=== PATIENT | male | born 1945 | race Caucasian/White ===

== ENCOUNTER 2020-01-31 06:26 | Observation (INO) | payer MEDICARE, OTHER ==
[~2020-01-31 06:26] MED LIST: Lidocaine 1% 4 ML ONE; Lidocaine 1%/Sod Bicarbonate in NS 8.4% 1 ML Syringe IDERM PRN; Midazolam 1 MG/ML 2 ML SDV ONE; Ondansetron 4 MG/2 ML SDV ONE; Propofol 200 MG/20 ML SDV ONE; Rocuronium 50 MG/5 ML Vial ONE; Sodium Chloride 0.9% 10 ML Syringe FLUSH PRN; fentaNYL 250 MCG/5 ML SDV ONE
[2020-01-31] MEDS: Lactated Ringers 1,000 ML IV SCH ×2 (06:45→10:18)
--- NOTE | 2020-01-31 06:51 | PCM.PREANE ---
Preanesthetic Assessment - Procedure Proposed Procedure: right reverse total shoulder - Anesthesia/Transfusion/Family Hx Anesthesia History: Prior Anesthesia Without Reaction Family History of Anesthesia Reaction: No Transfusion History: No Prior Transfusion(s) - Review of Systems General: No Symptoms Pulmonary: No Symptoms Cardiovascular: No Symptoms Gastrointestinal: No Symptoms Neurological: No Symptoms Other: Reports: None - Physical Assessment NPO Status Date: 01/30/20 NPO Status Time: 19:00 Vital Signs: 67 96% 97.0 145/72 Height: 6 ft Weight: 88.5 kg ASA Class: 2 Mental Status: Alert & Oriented x3 Airway Class: Mallampati = 1 Dentition: Reports: Normal Dentition Thyro-Mental Finger Breadths: 3 Mouth Opening Finger Breadths: 3 ROM/Head Extension: Full Lungs: Clear to Auscultation, Normal Respiratory Effort Cardiovascular: Regular Rate, Regular Rhythm - Lab Values: Laboratory Last Values SARS-CoV-2 (PCR) Not detected (NOT DETECT) 01/27/20 09:00 - Allergies Allergies/Adverse Reactions: Allergies Allergy/AdvReac Type Severity Reaction Status Date / Time No Known Allergies Allergy Verified 01/28/20 14:23 - Blood Blood Available: No - Acknowledgements Anesthesia Type Planned: General Anesthesia Pt an Appropriate Candidate for the Planned Anesthesia: Yes Alternatives and Risks of Anesthesia Discussed w Pt/Guardian: Yes Pt/Guardian Understands and Agrees with Anesthesia Plan: Yes PreAnesthesia Questionnaire Cardiovascular History: Reports: Heart Murmur, High Cholesterol, Hypertension, Other (See Below) Other Cardiovascular History: PAC's, Aortic Stenosis, Chest Pain Respiratory History: Reports: None Gastrointestinal History: Reports: Chronic Diarrhea, Diverticulosis, GERD, Irritable Bowel Syndrome Other Gastrointestinal History: Colon polyps, ventral hernia, chronic diarrhea, hemorrhoids Other Genitourinary History: ED, Hematuria Musculoskeletal History: Reports: Osteoarthritis Other Musculoskeletal History: quad tendond rupture, knee injury, ankle sprain Psychiatric History: Reports: None Endocrine/Metabolic History: Reports: Other (See Below) Other Endocrine/Metabolic History: Vitamin B12 Deficiency Hematologic History: Reports: B12 Deficiency Other Dermatologic History: Skin Lesion - Past Surgical History HEENT Surgical History: Reports: Tonsillectomy, Other (See Below) Other HEENT Surgeries/Procedures: Eye Surgeries, Blepharoplasty Cardiovascular Surgical History: Reports: Valve Replacement, Other (See Below) Other Cardiovascular Surgeries/Procedures: Aortic Valve Replacement GI Surgical History: Reports: Appendectomy, Colon Musculoskeletal Surgical History: Reports: Other (See Below) Other Musculoskeletal Surgeries/Procedures:: Right RCR, multiple knee surgeries - SUBSTANCE USE Smoking Status *Q: Former Smoker Tobacco Use Within Last Twelve Months: No Second Hand Smoke Exposure: No Days Per Week of Alcohol Use: 7 Number of Drinks Per Day: 3 Total Drinks Per Week: 21 Recreational Drug Use History: No - HOME MEDS Home Medications: Home Meds Cholecalciferol (Vitamin D3) [Vitamin D3] 1,000 units PO DAILY 08/01/15 [History] lisinopriL [Prinivil] 40 mg PO DAILY 08/01/15 [History] Loperamide HCl [Imodium A-D] 1 mg PO ASDIRECTED 01/28/20 [History] Vardenafil HCl [Levitra] 10 mg PO DAILY 01/28/20 [History] atorvaSTATin [Lipitor] 10 mg PO DAILY 01/28/20 [History] Aspirin 325 mg PO DAILY #40 tab 01/31/20 [Rx] Cyclobenzaprine [Flexeril] 5 mg PO BID PRN #20 tab 01/31/20 [Rx] oxyCODONE 5 - 10 mg PO Q4H PRN #60 tab 01/31/20 [Rx] - CURRENT (IN HOUSE) MEDS Current Meds: Current Medications Lactated Ringer's (Ringers, Lactated) 1,000 mls @ 125 mls/hr IV ASDIRECTED [place] Stop: 01/31/20 23:00 Lidocaine/Sodium Bicarbonate (Buffered Lidocaine 1% In Ns 8.4%) 0.25 ml IDERM ONETIME PRN PRN Reason: Prior to IV Start Stop: 01/31/20 23:00 Sodium Chloride (Saline Flush) 10 ml FLUSH ASDIRECTED PRN PRN Reason: Keep Vein Open Stop: 01/31/20 23:00 Discontinued Medications Fentanyl (Sublimaze) Confirm Administered Dose 250 mcg .ROUTE .STK-MED ONE Stop: 01/31/20 06:16 Lidocaine HCl (Xylocaine-Mpf 1%) Confirm Administered Dose 4 mls @ as directed .ROUTE .STK-MED ONE Stop: 01/31/20 06:15 Lidocaine HCl (Xylocaine-Mpf 1%) Confirm Administered Dose 4 mls @ as directed .ROUTE .STK-MED ONE Stop: 01/31/20 06:17 Midazolam HCl (Versed 1 Mg/Ml) Confirm Administered Dose 2 mg .ROUTE .STK-MED ONE Stop: 01/31/20 06:16 Ondansetron HCl (Zofran) Confirm Administered Dose 4 mg .ROUTE .STK-MED ONE Stop: 01/31/20 06:15 Propofol (Diprivan 20 Ml) Confirm Administered Dose 200 mg .ROUTE .STK-MED ONE Stop: 01/31/20 06:16 Rocuronium [place] (Zemuron) Confirm Administered Dose 50 mg .ROUTE .STK-MED ONE Stop: 01/31/20 06:15
[2020-01-31] MEDS ORDERED: Ropivacaine 0.5% 5 MG/ML 30 ML SDV ONE (06:58)
[2020-01-31] MEDS ORDERED: EPINEPHrine 1 MG/ML SDV ONE (06:58)
--- NOTE | 2020-01-31 06:58 | PCM.OPNOTE ---
- General Post-Op/Procedure Note Date of Surgery/Procedure: 01/31/20 Operative Procedure(s): right reverse total shoulder arthroplasty Pre Op Diagnosis: right shoulder rotator cuff tear arthropathy Post-Op Diagnosis: Same Anesthesia Technique: General ET Tube, Regional Block Primary Surgeon: Nathan Jerry Anesthesia Provider: Eduardo Gao Kitchen Worker: Hope Mar Kitchen Worker: Madonna Stone EBL in mLs: 550 Complications: None Condition: Good Free Text/Narrative:: 17 stem 36+2 4mm poly
--- NOTE | 2020-01-31 07:33 | PCM.SN.2 ---
- Free Text/Narrative Note: Date: 01/31/20 Time out: 07 Start time: 710 End time:[address] right interscalene block with ultrasound guidance and nerve stimulator for post op pain control per Dr. Jerry and patient. Preop diagnosis right shoulder pain. Procedure is right shoulder right shoulder replacement reverse Informed consent obtained. Monitors and O2 placed at 2 l per n/c. Versed 2 mg and Fentanyl 50 mcg given IV total. Patient awake and talking during procedure. Right neck and clavicle area prepped with chlorprep. Sterile gloves, hat and mask worn. US probe with sterile sleeve placed midclavicular with ID of brachial plexus and subclavian artery. Brachial plexus followed cephalad to level of cricoid. Lidocaine 1% local anesthetic injected prior to block placement. 22 g 2 inch stimplex needle advanced with US guidance to brachial plexus. Positive forearm response at .4mA with nerve stimulator. Ceased with saline injection. Ropivacaine 0.5% with epi 1:200,000 injected in increments of 5 ml with negative aspiration before each injection to a total of 30 ml. Good spread of local anes thetic seen on US. Patient tolerated procedure well. Vitals stable with no complaints. Eduardo Gao CRNA
[2020-01-31] MEDS ORDERED: Dexamethasone 4 MG/ML 5 ML MDV ONE (08:13)
[2020-01-31] MEDS ORDERED: Ondansetron 4 MG/2 ML SDV IVPUSH PRN ×2 (08:26→15:09)
[2020-01-31] MEDS ORDERED: HYDROmorphone 0.5 MG/0.5 ML Syringe IVPUSH PRN (08:26)
[2020-01-31] MEDS ORDERED: fentaNYL 100 MCG/2 ML SDV IVPUSH PRN (08:26)
[2020-01-31] MEDS ORDERED: Lactated Ringers 1,000 ML ONE ×2 (08:30→10:02)
[2020-01-31] MEDS: Vancomycin 1 GM SDV ONE ×2 (09:12→09:24)
--- NOTE | 2020-01-31 09:55 | PCM.POSTAN ---
POST ANESTHESIA ASSESSMENT - MENTAL STATUS Mental Status: Alert, Oriented - VITAL SIGNS Vital Signs: Last Vital Signs Temp 97.0 F 01/31/20 06:30 Pulse 65 01/31/20 08:17 Resp 17 01/31/20 08:17 BP 122/70 01/31/20 07:35 Pulse Ox 94 L 01/31/20 08:17 0947 130/63 97% 57 14 97.5 - RESPIRATORY Respiratory Status: Respiratory Rate WNL, Airway Patent, O2 Saturation Stable, Supplemental Oxygen - CARDIOVASCULAR CV Status: Pulse Rate WNL, Blood Pressure Stable - GASTROINTESTINAL GI Status: No Symptoms - PAIN Pain Score: 0 - POST OP HYDRATION Hydration Status: Adequate & Stable
[2020-01-31] MEDS ORDERED: Ketorolac 15 MG/ML SDV IVPUSH SCH (10:30)
[2020-01-31] MEDS: Cyclobenzaprine 10 MG Tab PO SCH ×2 (11:46→21:37)
[2020-01-31] MEDS: oxyCODONE 5 MG Tab PO PRN ×3 (11:47→22:13)
[2020-01-31] MEDS ORDERED: Naloxone 0.4 MG/ML SDV IVPUSH PRN (15:09)
[2020-01-31] MEDS ORDERED: Bisacodyl 5 MG Tab PO PRN (15:09)
[2020-01-31] MEDS ORDERED: Morphine 2 MG/ML SYRINGE IVPUSH PRN (15:09)
[2020-01-31] MEDS ORDERED: Sennosides 8.6 MG Tab PO PRN (15:09)
[2020-01-31] MEDS ORDERED: Magnesium Hydroxide 400 MG/5 ML Susp 30 ML Cup PO PRN (15:09)
[2020-01-31] MEDS ORDERED: Cyclobenzaprine 10 MG Tab PO PRN (15:16)
[2020-01-31] MEDS: ceFAZolin 2 GM in Premix Bag 1 BAG IV SCH ×2 (16:00→23:48)
[2020-01-31] MEDS ORDERED: Albuterol/Ipratropium 3.0-0.5 MG/3 ML Neb Soln NEB PRN (17:26)
[2020-01-31] MEDS: Docusate Sodium 100 MG Cap PO SCH (21:37)
[2020-01-31] MEDS: Famotidine 10 MG Tab PO SCH (21:42)
[2020-02-01] MEDS: oxyCODONE 5 MG Tab PO PRN ×2 (04:01→09:02)
--- NOTE | 2020-02-01 06:07 | PCM.CONS ---
H&P History of Present Illness - General Date of Service: 01/31/20 Admit Problem/Dx: Admission Diagnosis/Problem Admission Diagnosis/Problem Osteoarthritis of shoulder Source of Information: Patient, Provider History Limitations: Reports: No Limitations - History of Present Illness Initial Comments - Free Text/Narative: 74-year-old male with right reverse total shoulder today was found to be hypoxemic and bradycardic after surgery. Dr. Jerry consult medical service in regards to the above. Patient states he has a history of atrial arrhythmia since 2012 when he had cardiac valve surgery. Patient was first noticed then. He then he had surgery couple years ago on his right knee and there was concern about atrial fibrillation. Patient was seen by cardiology and after EKG and consultation it was determined that he had an atrial arrhythmia and not fibrillation. When I presented to the patient's bedside he had a pulse oximetry on that was reading in the mid 30s for pulse and he was at 92% on 2 L nasal cannula. Taking a radial pulse patient had a heart rate in the 70s. Supplemental O2 was stopped and his oxygen saturations did not change and work consistently in the low 90s. Patient denied any shortness of breath, cough, weakness, chest pain, edema, nausea, vomiting. Patient is a non-smoker. He does drink alcohol daily. Right Shoulder Pain Score (Numeric/FACES): 2 - Related Data Allergies/Adverse Reactions: Allergies Allergy/AdvReac Type Severity Reaction Status Date / Time No Known Allergies Allergy Verified 01/28/20 14:23 Home Medications: Home Meds Cholecalciferol (Vitamin D3) [Vitamin D3] 1,000 units PO DAILY 08/01/15 [History] lisinopriL [Prinivil] 40 mg PO DAILY 08/01/15 [History] Loperamide HCl [Imodium A-D] 1 mg PO ASDIRECTED 01/28/20 [History] Vardenafil HCl [Levitra] 10 mg PO DAILY 01/28/20 [History] atorvaSTATin [Lipitor] 10 mg PO DAILY 01/28/20 [History] Aspirin 325 mg PO DAILY #40 tab 01/31/20 [Rx] Cyclobenzaprine [Flexeril] 5 mg PO BID PRN #20 tab 01/31/20 [Rx] oxyCODONE 5 - 10 mg PO Q4H PRN #60 tab 01/31/20 [Rx] Past Medical History Cardiovascular History: Reports: Heart Murmur, High Cholesterol, Hypertension, Other (See Below) Other Cardiovascular History: PAC's, Aortic Stenosis, Chest Pain Respiratory History: Reports: None Gastrointestinal History: Reports: Chronic Diarrhea, Diverticulosis, GERD, Irritable Bowel Syndrome Other Gastrointestinal History: Colon polyps, ventral hernia, chronic diarrhea, hemorrhoids Other Genitourinary History: ED, Hematuria Musculoskeletal History: Reports: Osteoarthritis Other Musculoskeletal History: quad tendond rupture, knee injury, ankle sprain Psychiatric History: Reports: None Endocrine/Metabolic History: Reports: Other (See Below) Other Endocrine/Metabolic History: Vitamin B12 Deficiency Hematologic History: Reports: B12 Deficiency Other Dermatologic History: Skin Lesion - Past Surgical History HEENT Surgical History: Reports: Tonsillectomy, Other (See Below) Other HEENT Surgeries/Procedures: Eye Surgeries, Blepharoplasty Cardiovascular Surgical History: Reports: Valve Replacement, Other (See Below) Other Cardiovascular Surgeries/Procedures: Aortic Valve Replacement GI Surgical History: Reports: Appendectomy, Colon Musculoskeletal Surgical History: Reports: Other (See Below) Other Musculoskeletal Surgeries/Procedures:: Right RCR, multiple knee surgeries Social & Family History - Family History Family Medical History: Noncontributory - Tobacco Use Smoking Status *Q: Former Smoker Used Tobacco, but Quit: Yes Month/Year Tobacco Last Used: 1989 Tobacco Use Comment: Quit smoking 30 years ago Second Hand Smoke Exposure: No - Caffeine Use Caffeine Use: Reports: Coffee, Soda - Alcohol Use Days Per Week of Alcohol Use: 7 Number of Drinks Per Day: 3 Total Drinks Per Week: 21 - Recreational Drug Use Recreational Drug Use: No Drug Use in Last 12 Months: No H&P Review of Systems - Review of Systems: Review Of Systems: Comprehensive ROS is negative, except as noted in HPI. Exam - Exam Exam: See Below - Vital Signs Vital Signs: Last Vital Signs Temp 97.2 F 02/01/20 04:05 Pulse 50 L 02/01/20 04:05 Resp 16 02/01/20 04:05 BP 116/54 L 02/01/20 04:05 Pulse Ox 92 L 02/01/20 04:05 Weight: 88.5 kg - Exam Quality Assessment: Supplemental Oxygen General: Alert, Oriented, 4 HEENT: Conjunctiva Clear, EOMI, Hearing Intact, Mucosa Moist & [place], Normal Nasal Septum Neck: Supple, Trachea Midline, 2 Lungs: Clear to Auscultation, Normal Respiratory Effort Cardiovascular: Other (Regularly irregular rhythm with regular rate. Systolic 2 out of 6 murmur best heard in the right second intercostal space.) GI/Abdominal Exam: Normal Bowel Sounds, Soft, Non-Tender, No Organomegaly, No Distention, No Abnormal Bruit, No Mass, Pelvis Stable Extremities: Normal Capillary Refill, Other (Right shoulder immobilizer) Skin: Warm, Dry, Intact Neuro Extensive - Mental Status: Alert, Oriented x3, Normal Mood/Affect, Normal Cognition, Memory Intact Neuro Extensive - Motor, Sensory, Reflexes: CN II-XII Intact Psychiatric: Alert, Normal Affect, Normal Mood - Patient Data Imaging Impressions Last 24 hrs: EKG: Atrial arrhythmia with ventricular rate at 84. Multiple atrial premature complexes. Q waves in V3 with poor R wave progression. No EKG to compare. Sepsis Event Note - Evaluation Sepsis Screening Result: No Definite Risk - Focused Exam Vital Signs: Vital Signs Temp Pulse Pulse Resp BP Pulse Ox Pulse Ox 02/01/20 04:05 97.2 F 50 L 16 116/54 L 92 L 02/01/20 00:12 97.0 F 55 L 16 114/65 93 L 01/31/20 21:46 97.3 F 98 16 114/64 94 L 01/31/20 19:04 92 L 01/31/20 19:03 89 16 89 L 01/31/20 19:02 89 L Consult PN Assessment/Plan POD#: 0 Procedures: Procedures CARDIAC REHAB/MONITOR (11/23/15) MR-STAPH DNA AMP PROBE (01/11/20) (1) Atrial arrhythmia SNOMED Code(s): 31646890 Code(s): I49.8 - OTHER SPECIFIED CARDIAC ARRHYTHMIAS Current Visit: Yes Problem List Initiated/Reviewed/Updated: Yes My Orders Last 24 Hours: My Active Orders 01/31/20 17:18 Telemetry Monitoring [Cardiac Monitoring] [RC] . DIRECTED 01/31/20 17:26 Albuterol/Ipratropium [DuoNeb 3.0-0.5 MG/3 ML] 3 ml NEB Q4HRRT PRN 01/31/20 17:27 RT Aerosol Therapy [RC] ASDIRECTED 01/31/20 17:28 EKG Documentation Completion [RC] ROUTINE Consult to Respiratory Therapy [Respiratory Care Assess and Treatment] [CONS] Routine Plan: 58-year-old postop right reverse total shoulder Atrial arrhythmia * Patient has a history of atrial arrhythmia and this is likely the cause of the confusion by nursing about the bradycardia. Also the pulse oximetry is not picking up his saturations secondary to the poor waveform. EKG is consistent with a sinus rhythm with multiple APCs. Plan Place patient on telemetry overnight. Monitor pulse ox with spot checks instead of continuous pulse oximetry. Titrate FiO2 to keep SPO2 greater than 92%. Respiratory therapy consult. DuoNeb every 4 hours as needed shortness of breath or wheeze. Anticipate discharge tomorrow. Thank you for allowing me to participate in the care for this patient. Requesting Provider: Dr. Jerry Date Consult Requested: 01/31/20 Reason for Consult: Bradycardia and hypoxemia Patient History Reviewed: Yes Admission H&P Reviewed: Yes Notified Requestor: Yes
--- NOTE | 2020-02-01 07:22 | PCM.CONSN ---
- General Info Date of Service: 02/01/20 Admission Dx/Problem (Free Text): Admission Diagnosis/Problem Admission Diagnosis/Problem Osteoarthritis of shoulder Functional Status: Reports: Pain Controlled, Tolerating Diet, Ambulating, Urinating, Incentive Spirometry. Denies: New Symptoms - Review of Systems General: Reports: No Symptoms. Denies: Fever, Weakness, Fatigue, Malaise, Chills HEENT: Reports: No Symptoms. Denies: Headaches, Sore Throat Pulmonary: Reports: No Symptoms. Denies: Shortness of Breath, Cough, Sputum, Wheezing Cardiovascular: Reports: No Symptoms. Denies: Chest Pain, Palpitations, Dyspnea on Exertion Gastrointestinal: Reports: No Symptoms. Denies: Abdominal Pain, Constipation, Diarrhea, Nausea, Vomiting Genitourinary: Reports: No Symptoms. Denies: Pain Musculoskeletal: Reports: Shoulder Pain Skin: Reports: No Symptoms. Denies: Cyanosis Neurological: Reports: No Symptoms. Denies: Confusion, Difficulty Walking, Gait Disturbance Psychiatric: Reports: No Symptoms - Patient Data Vitals - Most Recent: Last Vital Signs Temp 97.2 F 02/01/20 04:05 Pulse 50 L 02/01/20 04:05 Resp 16 02/01/20 04:05 BP 116/54 L 02/01/20 04:05 Pulse Ox 92 L 02/01/20 04:05 Weight - Most Recent: 195 lb 1.745 oz I&O - Last 24 Hours: Intake & Output 01/31/20 02/01/20 02/01/20 22:59 06:59 14:59 Intake Total 1550 Output Total 100 300 Balance 1450 -300 Lab Results Last 24 Hours: Laboratory Results - last 24 hr 02/01/20 02/01/20 Range/Units 06:03 06:03 WBC 8.33 (4.23-9.07) K/mm3 RBC 3.77 L (4.63-6.08) M/mm3 Hgb 12.8 L (13.7-17.5) gm/dl Hct 39.8 L (40.1-51.0) % MCV 105.6 H (79.0-92.2) fl MCH 34.0 H (25.7-32.2) pg MCHC 32.2 (32.2-35.5) g/dl RDW Std Deviation 48.3 H (35.1-43.9) fL Plt Count 112 L (163-337) K/mm3 MPV 10.5 (9.4-12.3) fl Sodium 137 (136-145) mEq/L Potassium 4.2 (3.5-5.1) mEq/L Chloride 101 (98-107) mEq/L Carbon Dioxide 29 (21-32) mEq/L Anion Gap 11.2 (5-15) BUN 18 (7-18) mg/dL Creatinine 1.0 (0.7-1.3) mg/dL Est Cr Clr Drug Dosing 72.21 mL/min Estimated GFR (MDRD) > 60 (>60) mL/min BUN/Creatinine Ratio 18.0 (14-18) Glucose 132 H (83-115) mg/dL Calcium 8.7 (8.5-10.1) mg/dL Total Bilirubin 0.8 (0.2-1.0) mg/dL AST 24 (15-37) U/L ALT 28 (16-63) U/L Alkaline Phosphatase 55 (46-116) U/L Total Protein 6.5 (6.4-8.2) g/dl Albumin 3.2 L (3.4-5.0) g/dl Globulin 3.3 gm/dL Albumin/Globulin Ratio 1.0 (1-2) Med Orders - Current: Current Medications Albuterol/Ipratropium (Duoneb 3.0-0.5 Mg/3 Ml) 3 ml NEB Q4HRRT PRN PRN Reason: Shortness of Breath Bisacodyl (Dulcolax) 5 mg PO DAILY PRN PRN Reason: Constipation Cyclobenzaprine HCl (Flexeril) 5 mg PO BID [facility] Last Admin: 01/31/20 21:37 Dose: 5 mg Documented by: Cyclobenzaprine HCl (Flexeril) 5 mg PO BID PRN PRN Reason: Spasms Docusate Sodium (Colace) 100 mg PO BID [facility] Last Admin: 01/31/20 21:37 Dose: 100 mg Documented by: Famotidine (Pepcid) 20 mg PO BID [facility] Last Admin: 01/31/20 21:42 Dose: 20 mg Documented by: Cefazolin Sodium/Dextrose 2 gm (/ Premix) 50 mls @ 100 mls/hr IV Q8H [facility] Stop: 02/01/20 07:59 Last Admin: 01/31/20 23:48 Dose: 100 mls/hr Documented by: Magnesium Hydroxide (Milk Of Magnesia) 30 ml PO BID PRN PRN Reason: Constipation Morphine Sulfate (Morphine) 2 mg IVPUSH Q2H PRN PRN Reason: Breakthrough Pain Naloxone HCl (Narcan) 0.1 mg IVPUSH Q5M PRN PRN Reason: Oversedation Ondansetron HCl (Zofran) 4 mg IVPUSH Q6H PRN PRN Reason: Nausea/Vomiting Oxycodone HCl (Oxycodone) 5 - 10 mg PO Q4H PRN PRN Reason: Pain Last Admin: 01/31/20 11:47 Dose: 10 mg Documented by: Oxycodone HCl (Oxycodone) 5 - 10 mg PO Q4H PRN PRN Reason: Pain Last Admin: 02/01/20 04:01 Dose: 10 mg Documented by: Senna (Senna) 8.6 mg PO BID PRN PRN Reason: Constipation Discontinued Medications Dexamethasone (Dexamethasone) Confirm Administered Dose 20 mg .ROUTE .STK-MED ONE Stop: 01/31/20 08:14 Epinephrine HCl (Adrenalin) Confirm Administered Dose 1 mg .ROUTE .STK-MED ONE Stop: 01/31/20 06:59 Fentanyl (Sublimaze) Confirm Administered Dose 250 mcg .ROUTE .STK-MED ONE Stop: 01/31/20 06:16 Fentanyl (Sublimaze) 50 mcg IVPUSH Q5M PRN PRN Reason: Pain Stop: 01/31/20 18:00 Glycopyrrolate (Robinul) Confirm Administered Dose 0.4 mg .ROUTE .STK-MED ONE Stop: 01/31/20 08:53 Hydromorphone HCl (Dilaudid) 0.5 mg IVPUSH Q10M PRN PRN Reason: Pain (severe 7-10) Stop: 01/31/20 18:00 Lactated Ringer's (Ringers, Lactated) 1,000 mls @ 125 mls/hr IV ASDIRECTED [place] Stop: 01/31/20 23:00 Last Admin: 01/31/20 10:18 Dose: 125 mls/hr Documented by: Lidocaine HCl (Xylocaine-Mpf 1%) Confirm Administered Dose 4 mls @ as directed .ROUTE .STK-MED ONE Stop: 01/31/20 06:15 Lidocaine HCl (Xylocaine-Mpf 1%) Confirm Administered Dose 4 mls @ as directed .ROUTE .STK-MED ONE Stop: 01/31/20 06:17 Lactated Ringer's (Ringers, Lactated) Confirm Administered Dose 1,000 mls @ as directed .ROUTE .STK-MED ONE Stop: 01/31/20 08:31 Lactated Ringer's (Ringers, Lactated) Confirm Administered Dose 1,000 mls @ as directed .ROUTE .STK-MED ONE Stop: 01/31/20 10:03 Ketorolac Tromethamine (Toradol) 15 mg IVPUSH ONETIME [place] Stop: 01/31/20 13:00 Last Admin: 01/31/20 10:34 Dose: 15 mg Documented by: Lidocaine/Sodium Bicarbonate (Buffered Lidocaine 1% In Ns 8.4%) 0.25 ml IDERM ONETIME PRN PRN Reason: Prior to IV Start Stop: 01/31/20 23:00 Last Admin: 01/31/20 06:45 Dose: 0.25 ml Documented by: Midazolam HCl (Versed 1 Mg/Ml) Confirm Administered Dose 2 mg .ROUTE .STK-MED ONE Stop: 01/31/20 06:16 Miscellaneous Medication (Phenylephrine 1 Mg/10 Ml-Ns) Confirm Administered Dose 1 mg .ROUTE .STK-MED ONE Stop: 01/31/20 08:42 Miscellaneous Medication (Phenylephrine 1 Mg/10 Ml-Ns) Confirm Administered Dose 1 mg .ROUTE .STK-MED ONE Stop: 01/31/20 09:17 Neostigmine Methylsulfate (Neostigmine Methylsulfate) Confirm Administered Dose 5 mg .ROUTE .STK-MED ONE Stop: 01/31/20 09:22 Ondansetron HCl (Zofran) Confirm Administered Dose 4 mg .ROUTE .STK-MED ONE Stop: 01/31/20 06:15 Ondansetron HCl (Zofran) 4 mg IVPUSH ONETIME PRN PRN Reason: Nausea/Vomiting Stop: 01/31/20 18:00 Propofol (Diprivan 20 Ml) Confirm Administered Dose 200 mg .ROUTE .STK-MED ONE Stop: 01/31/20 06:16 Rocuronium [place] (Zemuron) Confirm Administered Dose 50 mg .ROUTE .STK-MED ONE Stop: 01/31/20 06:15 Ropivacaine (Naropin 0.5%) Confirm Administered Dose 30 ml .ROUTE .STK-MED ONE Stop: 01/31/20 06:59 Sodium Chloride (Saline Flush) 10 ml FLUSH ASDIRECTED PRN PRN Reason: Keep Vein Open Stop: 01/31/20 23:00 Tranexamic Acid (Cyklokapron) Confirm Administered Dose 1,000 mg .ROUTE .STK-MED ONE Stop: 01/31/20 07:38 Last Admin: 01/31/20 09:24 Dose: 1,000 mg Documented by: Vancomycin HCl (Vancomycin) Confirm Administered Dose 1 gm .ROUTE .[employer]-MED ONE Stop: 01/31/20 07:38 Last Admin: 01/31/20 09:24 Dose: 1 gm Documented by: - Exam Quality Assessment: DVT Prophylaxis. No: Supplemental Oxygen, Urine Catheter General: Alert, Oriented, Cooperative, No Acute Distress HEENT: Pupils Equal, Pupils Reactive, Mucous Membr. Moist/[place] Neck: Supple, Trachea Midline Lungs: Clear to Auscultation, Normal Respiratory Effort Cardiovascular: Regular Rate, Irregular Rhythm, Murmurs GI/Abdominal Exam: Normal Bowel Sounds, Soft, Non-Tender, No Distention (Male) Exam: Deferred Back Exam: Normal Inspection, Full Range of Motion Extremities: Arm Pain (right shoulder ), Limited Range of Motion, Other (Bandage in place on right shoulder. Shoulder immobilizer and cooling pack in place.) Skin: Warm, Dry, Intact Wound/Incisions: Dressing Dry and Intact Neurological: No New Focal Deficit Psy/Mental Status: Alert, Normal Affect, Normal Mood Sepsis Event Note - Evaluation Sepsis Screening Result: No Definite Risk Consult PN Assessment/Plan POD#: 1 Procedures: Procedures CARDIAC REHAB/MONITOR (11/23/15) MR-STAPH DNA AMP PROBE (01/11/20) (1) Atrial arrhythmia SNOMED Code(s): 44741494 Code(s): I49.8 - OTHER SPECIFIED CARDIAC ARRHYTHMIAS Priority: High Current Visit: Yes (2) S/p reverse total shoulder arthroplasty SNOMED Code(s): 271385673, 004775463 Code(s): Z96.619 - PRESENCE OF UNSPECIFIED ARTIFICIAL SHOULDER JOINT Priority: High Current Visit: Yes Qualifiers: Laterality: right Qualified Code(s): Z96.611 - Presence of right artificial shoulder joint (3) Osteoarthritis SNOMED Code(s): 743160391 Code(s): M19.90 - UNSPECIFIED OSTEOARTHRITIS, UNSPECIFIED SITE Priority: High Current Visit: Yes Qualifiers: Osteoarthritis location: shoulder Osteoarthritis type: primary Laterality: right Qualified Code(s): M19.011 - Primary osteoarthritis, right shoulder (4) Heart murmur SNOMED Code(s): 24231406 Code(s): R01.1 - CARDIAC MURMUR, UNSPECIFIED Priority: Medium Current Visit: No (5) HLD (hyperlipidemia) SNOMED Code(s): 30830935 Code(s): E78.5 - HYPERLIPIDEMIA, UNSPECIFIED Priority: Low Current Visit: No Qualifiers: Hyperlipidemia type: unspecified Qualified Code(s): E78.5 - Hyperlipidemia, unspecified (6) HTN (hypertension) SNOMED Code(s): 09321959 Code(s): I10 - ESSENTIAL (PRIMARY) HYPERTENSION Priority: Medium Current Visit: No Qualifiers: Hypertension type: unspecified Qualified Code(s): I10 - Essential (primary) hypertension (7) PAC (premature atrial contraction) SNOMED Code(s): 031910014 Code(s): I49.1 - ATRIAL PREMATURE DEPOLARIZATION Priority: Medium Current Visit: No (8) Aortic stenosis SNOMED Code(s): 73187429 Code(s): I35.0 - NONRHEUMATIC AORTIC (VALVE) STENOSIS Priority: Medium Current Visit: No Qualifiers: Cardiac valve disease etiology: etiology unspecified Qualified Code(s): I35.0 - Nonrheumatic aortic (valve) stenosis (9) Chronic diarrhea SNOMED Code(s): 919586932 Code(s): K52.9 - NONINFECTIVE GASTROENTERITIS AND COLITIS, UNSPECIFIED Priority: Low Current Visit: No (10) Diverticulosis SNOMED Code(s): 858506469 Code(s): K57.90 - DVRTCLOS OF INTEST, PART UNSP, W/O PERF OR ABSCESS W/O BLEED Priority: Low Current Visit: No (11) GERD (gastroesophageal reflux disease) SNOMED Code(s): 487881632 Code(s): K21.9 - GASTRO-ESOPHAGEAL REFLUX DISEASE WITHOUT ESOPHAGITIS Priority: Low Current Visit: No Qualifiers: Esophagitis presence: esophagitis presence not specified Qualified Code(s): K21.9 - Gastro-esophageal reflux disease without esophagitis (12) IBS (irritable bowel syndrome) SNOMED Code(s): 72933266 Code(s): K58.9 - IRRITABLE BOWEL SYNDROME WITHOUT DIARRHEA Priority: Low Current Visit: No Qualifiers: Irritable bowel syndrome type: unspecified Qualified Code(s): K58.9 - Irritable bowel syndrome without diarrhea (13) Ventral hernia SNOMED Code(s): 402111774 Code(s): K43.9 - VENTRAL HERNIA WITHOUT OBSTRUCTION OR GANGRENE Priority: Low Current Visit: No Qualifiers: Obstruction and gangrene presence: without obstruction or gangrene Qualif ied Code(s): K43.9 - Ventral hernia without obstruction or gangrene (14) Hemorrhoids SNOMED Code(s): 86656545 Code(s): K64.9 - UNSPECIFIED HEMORRHOIDS Priority: Low Current Visit: No Qualifiers: Hemorrhoid type: unspecified Qualified Code(s): K64.9 - Unspecified hemorrhoids (15) Erectile dysfunction SNOMED Code(s): 340757097 Code(s): N52.9 - MALE ERECTILE DYSFUNCTION, UNSPECIFIED Priority: Low Current Visit: No Qualifiers: Erectile dysfunction type: unspecified Qualified Code(s): N52.9 - Male erectile dysfunction, unspecified (16) Hematuria SNOMED Code(s): 56417801 Code(s): R31.9 - HEMATURIA, UNSPECIFIED Priority: Low Current Visit: No Qualifiers: Hematuria type: unspecified type Qualified Code(s): R31.9 - Hematuria, unspecified (17) B12 deficiency SNOMED Code(s): 262554665 Code(s): E53.8 - DEFICIENCY OF OTHER SPECIFIED B GROUP VITAMINS Priority: Low Current Visit: No Problem List Initiated/Reviewed/Updated: Yes Plan: I/P: Acute: S/P right reverse total shoulder arthroplasty - post-operative day 1 -DVT prophylaxis and pain management per primary care team -PT/OT -IS/RT -Monitor oxygen saturation -Titrate oxygen as needed -Home medications reviewed -Vital signs stable -Monitor labs -Pre-operative Hgb was 15.4, Now 12.8 -Pre-operative GFR was 84, Now >60 -Pre-operative A1C was 5.5% -Pre-operative 12-lead EKG showed as sinus rhythm with a first degree AV Block and PACs at 61 BPM Osteoarthritis of right shoulder -Pain management per primary care team Arrhythmia -Telemetry -12-lead obtained shows sinus rhythm with frequent PACs, borderline first degree AV block. -Patient has longstanding history of frequent PACs -Bradycardia appears to be poor signal on monitor Hypoxia -Poor waveform leading to poor saturations -Monitor need for oxygen -Goal saturations above 92% -PRN Duonebs Q4Hr -IS/RT Chronic: Systolic murmur HLD HTN PAC's Aortic stenosis Chronic diarrhea Diverticulosis GERD IBS Ventral hernia Hemorrhoids Hematuria ED Vitamin B12 deficiency Plan: CM for discharge planning GI prophylaxis Home medications as indicated Other orders as listed above Routine AM labs He is a full code. His PCP is Dr. Connors From a hospitalist standpoint Lacho is doing well. He has been up ambulating and working with therapies. He is off of oxygen and has urinated. Pain is controlled. Labs and vital signs remained stable. His heart rate has been irregular, but this is nothing new for him. 12-lead EKG was obtained as above. No concerns from telemetry. He is cleared for discharge pending primary team and PT/OT agreement. Thank you for allowing us to participate in the care of this patient!!
[2020-02-01] MEDS: ceFAZolin 2 GM in Premix Bag 1 BAG IV SCH (07:34)
--- NOTE | 2020-02-01 08:03 | PCM.SURGPN ---
- General Info Date of Service: 02/01/20 POD#: 1 Functional Status: Reports: Pain Controlled, Tolerating Diet, Ambulating, Urinating, Incentive Spirometry, Other (The pt states he is doing well.) - Patient Data Vitals - Most Recent: Last Vital Signs Temp 97.2 F 02/01/20 04:05 Pulse 50 L 02/01/20 04:05 Resp 16 02/01/20 04:05 BP 116/54 L 02/01/20 04:05 Pulse Ox 92 L 02/01/20 04:05 Weight - Most Recent: 195 lb 1.745 oz I&O - Last 24 Hours: Intake & Output 01/31/20 02/01/20 02/01/20 22:59 06:59 14:59 Intake Total 1550 Output Total 100 300 Balance 1450 -300 Lab Results Last 24 Hrs: Laboratory Results - last 24 hr 02/01/20 02/01/20 Range/Units 06:03 06:03 WBC 8.33 (4.23-9.07) K/mm3 RBC 3.77 L (4.63-6.08) M/mm3 Hgb 12.8 L (13.7-17.5) gm/dl Hct 39.8 L (40.1-51.0) % MCV 105.6 H (79.0-92.2) fl MCH 34.0 H (25.7-32.2) pg MCHC 32.2 (32.2-35.5) g/dl RDW Std Deviation 48.3 H (35.1-43.9) fL Plt Count 112 L (163-337) K/mm3 MPV 10.5 (9.4-12.3) fl Sodium 137 (136-145) mEq/L Potassium 4.2 (3.5-5.1) mEq/L Chloride 101 (98-107) mEq/L Carbon Dioxide 29 (21-32) mEq/L Anion Gap 11.2 (5-15) BUN 18 (7-18) mg/dL Creatinine 1.0 (0.7-1.3) mg/dL Est Cr Clr Drug Dosing 72.21 mL/min Estimated GFR (MDRD) > 60 (>60) mL/min BUN/Creatinine Ratio 18.0 (14-18) Glucose 132 H (83-115) mg/dL Calcium 8.7 (8.5-10.1) mg/dL Total Bilirubin 0.8 (0.2-1.0) mg/dL AST 24 (15-37) U/L ALT 28 (16-63) U/L Alkaline Phosphatase 55 (46-116) U/L Total Protein 6.5 (6.4-8.2) g/dl Albumin 3.2 L (3.4-5.0) g/dl Globulin 3.3 gm/dL Albumin/Globulin Ratio 1.0 (1-2) Med Orders - Current: Current Medications Albuterol/Ipratropium (Duoneb 3.0-0.5 Mg/3 Ml) 3 ml NEB Q4HRRT PRN PRN Reason: Shortness of Breath Bisacodyl (Dulcolax) 5 mg PO DAILY PRN PRN Reason: Constipation Cyclobenzaprine HCl (Flexeril) 5 mg PO BID [facility] Last Admin: 01/31/20 21:37 Dose: 5 mg Documented by: Cyclobenzaprine HCl (Flexeril) 5 mg PO BID PRN PRN Reason: Spasms Docusate Sodium (Colace) 100 mg PO BID [facility] Last Admin: 01/31/20 21:37 Dose: 100 mg Documented by: Famotidine (Pepcid) 20 mg PO BID [facility] Last Admin: 01/31/20 21:42 Dose: 20 mg Documented by: Magnesium Hydroxide (Milk Of Magnesia) 30 ml PO BID PRN PRN Reason: Constipation Morphine Sulfate (Morphine) 2 mg IVPUSH Q2H PRN PRN Reason: Breakthrough Pain Naloxone HCl (Narcan) 0.1 mg IVPUSH Q5M PRN PRN Reason: Oversedation Ondansetron HCl (Zofran) 4 mg IVPUSH Q6H PRN PRN Reason: Nausea/Vomiting Oxycodone HCl (Oxycodone) 5 - 10 mg PO Q4H PRN PRN Reason: Pain Last Admin: 01/31/20 11:47 Dose: 10 mg Documented by: Oxycodone HCl (Oxycodone) 5 - 10 mg PO Q4H PRN PRN Reason: Pain Last Admin: 02/01/20 04:01 Dose: 10 mg Documented by: Senna (Senna) 8.6 mg PO BID PRN PRN Reason: Constipation Discontinued Medications Dexamethasone (Dexamethasone) Confirm Administered Dose 20 mg .ROUTE .STK-MED ONE Stop: 01/31/20 08:14 Epinephrine HCl (Adrenalin) Confirm Administered Dose 1 mg .ROUTE .STK-MED ONE Stop: 01/31/20 06:59 Fentanyl (Sublimaze) Confirm Administered Dose 250 mcg .ROUTE .STK-MED ONE Stop: 01/31/20 06:16 Fentanyl (Sublimaze) 50 mcg IVPUSH Q5M PRN PRN Reason: Pain Stop: 01/31/20 18:00 Glycopyrrolate (Robinul) Confirm Administered Dose 0.4 mg .ROUTE .STK-MED ONE Stop: 01/31/20 08:53 Hydromorphone HCl (Dilaudid) 0.5 mg IVPUSH Q10M PRN PRN Reason: Pain (severe 7-10) Stop: 01/31/20 18:00 Lactated Ringer's (Ringers, Lactated) 1,000 mls @ 125 mls/hr IV ASDIRECTED [facility] Stop: 01/31/20 23:00 Last Admin: 01/31/20 10:18 Dose: 125 mls/hr Documented by: Lidocaine HCl (Xylocaine-Mpf 1%) Confirm Administered Dose 4 mls @ as directed .ROUTE .STK-MED ONE Stop: 01/31/20 06:15 Lidocaine HCl (Xylocaine-Mpf 1%) Confirm Administered Dose 4 mls @ as directed .ROUTE .STK-MED ONE Stop: 01/31/20 06:17 Lactated Ringer's (Ringers, Lactated) Confirm Administered Dose 1,000 mls @ as directed .ROUTE .STK-MED ONE Stop: 01/31/20 08:31 Lactated Ringer's (Ringers, Lactated) Confirm Administered Dose 1,000 mls @ as directed .ROUTE .STK-MED ONE Stop: 01/31/20 10:03 Cefazolin Sodium/Dextrose 2 gm (/ Premix) 50 mls @ 100 mls/hr IV Q8H [facility] Stop: 02/01/20 07:59 Last Admin: 02/01/20 07:34 Dose: 100 mls/hr Documented by: Ketorolac Tromethamine (Toradol) 15 mg IVPUSH ONETIME [facility] Stop: 01/31/20 13:00 Last Admin: 01/31/20 10:34 Dose: 15 mg Documented by: Lidocaine/Sodium Bicarbonate (Buffered Lidocaine 1% In Ns 8.4%) 0.25 ml IDERM ONETIME PRN PRN Reason: Prior to IV Start Stop: 01/31/20 23:00 Last Admin: 01/31/20 06:45 Dose: 0.25 ml Documented by: Midazolam HCl (Versed 1 Mg/Ml) Confirm Administered Dose 2 mg .ROUTE .STK-MED ONE Stop: 01/31/20 06:16 Miscellaneous Medication (Phenylephrine 1 Mg/10 Ml-Ns) Confirm Administered Dose 1 mg .ROUTE .STK-MED ONE Stop: 01/31/20 08:42 Miscellaneous Medication (Phenylephrine 1 Mg/10 Ml-Ns) Confirm Administered Dose 1 mg .ROUTE .STK-MED ONE Stop: 01/31/20 09:17 Neostigmine Methylsulfate (Neostigmine Methylsulfate) Confirm Administered Dose 5 mg .ROUTE .STK-MED ONE Stop: 01/31/20 09:22 Ondansetron HCl (Zofran) Confirm Administered Dose 4 mg .ROUTE .STK-MED ONE Stop: 01/31/20 06:15 Ondansetron HCl (Zofran) 4 mg IVPUSH ONETIME PRN PRN Reason: Nausea/Vomiting Stop: 01/31/20 18:00 Propofol (Diprivan 20 Ml) Confirm Administered Dose 200 mg .ROUTE .STK-MED ONE Stop: 01/31/20 06:16 Rocuronium [place] (Zemuron) Confirm Administered Dose 50 mg .ROUTE .STK-MED ONE Stop: 01/31/20 06:15 Ropivacaine (Naropin 0.5%) Confirm Administered Dose 30 ml .ROUTE .STK-MED ONE Stop: 01/31/20 06:59 Sodium Chloride (Saline Flush) 10 ml FLUSH ASDIRECTED PRN PRN Reason: Keep Vein Open Stop: 01/31/20 23:00 Tranexamic Acid (Cyklokapron) Confirm Administered Dose 1,000 mg .ROUTE .STK-MED ONE Stop: 01/31/20 07:38 Last Admin: 01/31/20 09:24 Dose: 1,000 mg Documented by: Vancomycin HCl (Vancomycin) Confirm Administered Dose 1 gm .ROUTE .STK-MED ONE Stop: 01/31/20 07:38 Last Admin: 01/31/20 09:24 Dose: 1 gm Documented by: - Exam Wound/Incisions: Dressing Dry and Intact General: Alert, Cooperative, No Acute Distress Lungs: Normal Respiratory Effort Extremities: Other (NVS intact for RUE.) Sepsis Event Note - Evaluation Sepsis Screening Result: No Definite Risk - Focused Exam Vital Signs: Vital Signs Temp Pulse Resp BP Pulse Ox 02/01/20 04:05 97.2 F 50 L 16 116/54 L 92 L 02/01/20 00:12 97.0 F 55 L 16 114/65 93 L 01/31/20 21:46 97.3 F 98 16 114/64 94 L - Problem List Review Problem List Initiated/Reviewed/Updated: Yes - My Orders Last 24 Hours: Active Orders 24 hr Category Date Time Status Patient Status [ADT] Routine ADT 01/31/20 15:34 Active Ambulate [RC] PER UNIT ROUTINE Care 01/31/20 15:09 Active Antiembolic Devices [RC] .Routine Care 01/31/20 15:13 Active Antiembolic Devices [RC] PER UNIT ROUTINE Care 01/31/20 15:13 Active Communication Order [RC] ASDIRECTED Care 01/31/20 08:26 Active Communication Order [RC] ASDIRECTED Care 01/31/20 14:30 Active Communication Order [RC] ASDIRECTED Care 02/01/20 08:01 Ordered Cooling Warming Measures [RC] ASDIRECTED Care 01/31/20 08:26 Active EKG Documentation Completion [RC] ROUTINE Care 01/31/20 17:28 Active May Shower [RC] ASDIRECTED Care 01/31/20 15:09 Active Notify Provider Consults [RC] ASDIRECTED Care 01/31/20 16:54 Active Oxygen Therapy [RC] ASDIRECTED Care 01/31/20 08:26 Active Oxygen Therapy [RC] PRN Care 01/31/20 15:09 Active Oxygen Therapy [RC] PRN Care 01/31/20 15:34 Active Pulse Oximetry [RC] ASDIRECTED Care 01/31/20 08:26 Active RT Aerosol Therapy [RC] ASDIRECTED Care 01/31/20 17:27 Active RT Incentive Spirometry [RC] Q1HWA Care 01/31/20 15:09 Active Telemetry Monitoring [Cardiac Monitoring] [RC] . Care 01/31/20 17:18 Active DIRECTED Up to Chair [RC] ASDIRECTED Care 01/31/20 15:09 Active VTE/DVT Education [RC] PER UNIT ROUTINE Care 01/31/20 15:13 Active Vital Signs [RC] PER UNIT ROUTINE Care 01/31/20 15:09 Active Vital Signs [RC] PER UNIT ROUTINE Care 01/31/20 15:34 Active Consult to Physician [CONS] Stat Cons 01/31/20 16:52 Active Consult to Respiratory Therapy [Respiratory Care Assess Cons 01/31/20 17:28 Active and Treatment] [CONS] Routine Regular Diet [DIET] Diet 01/31/20 Dinner Active Fluoro Up To 1Hr [CR] Routine Exams 01/31/20 08:16 Taken Shoulder 1V Rt [CR] Routine Exams 01/31/20 10:32 Taken Albuterol/Ipratropium [DuoNeb 3.0-0.5 MG/3 ML] Med 01/31/20 17:26 Active 3 ml NEB Q4HRRT PRN Cyclobenzaprine [Flexeril] Med 01/31/20 11:45 Active 5 mg PO BID Cyclobenzaprine [Flexeril] Med 01/31/20 15:16 Active 5 mg PO BID PRN Docusate Sodium [Colace] Med 01/31/20 21:00 Active 100 mg PO BID Famotidine [Pepcid] Med 01/31/20 21:00 Active 20 mg PO BID Magnesium Hydroxide [Milk of Magnesia] Med 01/31/20 15:09 Active 30 ml PO BID PRN Morphine Med 01/31/20 15:09 Active 2 mg IVPUSH Q2H PRN Naloxone [Narcan] Med 01/31/20 15:09 Active 0.1 mg IVPUSH Q5M PRN Ondansetron [Zofran] Med 01/31/20 15:09 Active 4 mg IVPUSH Q6H PRN Sennosides [Senna] Med 01/31/20 15:09 Active 8.6 mg PO BID PRN bisacodyL [Dulcolax] Med 01/31/20 15:09 Active 5 mg PO DAILY PRN oxyCODONE Med 01/31/20 11:31 Active 5 - 10 mg PO Q4H PRN oxyCODONE Med 01/31/20 15:16 Active 5 - 10 mg PO Q4H PRN Antiembolic Hose [OM.PC] Per Unit Routine Oth 01/31/20 15:12 Ordered DVT/VTE Prophylaxis Reflex [OM.PC] Routine Oth 01/31/20 15:09 Ordered Ice Therapy [OM.PC] Per Unit Routine Oth 01/31/20 15:10 Ordered Resuscitation Status Routine Resus Stat 01/31/20 15:09 Ordered Medication Orders Albuterol/Ipratropium (Duoneb 3.0-0.5 Mg/3 Ml) 3 ml NEB Q4HRRT PRN PRN Reason: Shortness of Breath Bisacodyl (Dulcolax) 5 mg PO DAILY PRN PRN Reason: Constipation Cyclobenzaprine HCl (Flexeril) 5 mg PO BID [facility] Last Admin: 01/31/20 21:37 Dose: 5 mg Documented by: Admin: 01/31/20 11:46 Dose: 5 mg Documented by: OFELIA Cyclobenzaprine HCl (Flexeril) 5 mg PO BID PRN PRN Reason: Spasms Docusate Sodium (Colace) 100 mg PO BID [facility] Last Admin: 01/31/20 21:37 Dose: 100 mg Documented by: FILEMON Famotidine (Pepcid) 20 mg PO BID [facility] Last Admin: 01/31/20 21:42 Dose: 20 mg Documented by: FILEMON Magnesium Hydroxide (Milk Of Magnesia) 30 ml PO BID PRN PRN Reason: Constipation Morphine Sulfate (Morphine) 2 mg IVPUSH Q2H PRN PRN Reason: Breakthrough Pain Naloxone HCl (Narcan) 0.1 mg IVPUSH Q5M PRN PRN Reason: Oversedation Ondansetron HCl (Zofran) 4 mg IVPUSH Q6H PRN PRN Reason: Nausea/Vomiting Oxycodone HCl (Oxycodone) 5 - 10 mg PO Q4H PRN PRN Reason: Pain Last Admin: 01/31/20 11:47 Dose: 10 mg Documented by: OFELIA Oxycodone HCl (Oxycodone) 5 - 10 mg PO Q4H PRN PRN Reason: Pain Last Admin: 02/01/20 04:01 Dose: 10 mg Documented by: Admin: 01/31/20 22:13 Dose: 10 mg Documented by: Admin: 01/31/20 18:02 Dose: 10 mg Documented by: KHANH Mcdaniel (Jonas) 8.6 mg PO BID PRN PRN Reason: Constipation - Assessment Assessment (Free Text/Narrative):: POD#1 - right reverse TSA - Plan Plan (Free Text/Narrative):: 1. Pt is doing well and prepared for d/c to home with his . 2. ASA daily, frequent mobility, TEDs. 3. Outpatient therapy. 4. Medical management per Hospitalist service. 5. Hgb 12.8. The pt's case was discussed with Dr. Jerry.
--- NOTE | 2020-02-01 08:07 | PCM.DCSUM1 ---
Discharge Summary - Hospital Course Brief History: Lacho is a 74 yo male who underwent right reverse TSA with Dr. Jerry on 01-31-2020. The procedure was completed under general anesthesia with regional block. The pt was noted to have post-op bradycardia and required continued use of O2. Decision was made to admit pt to Hospital under observation status. A Hospitalist consult was obtained. The pt's atrial arrhythmia was closely monitored by the Hospitalist service and the pt's status improved. The pt's Hgb on POD#1 was 12.8. On POD#1, 325mg daily was initiated for VTE prophylaxis. SCDs and TEDs were also ordered. A Mepilex dressing was placed at the incision site at the time of surgery and remained clean and dry. The pt participated in therapy and progressed well. On POD#1, the pt was deemed appropriate to discharge to home with his . - Discharge Data Discharge Date: 02/01/20 Discharge Disposition: Home, Self-Care 01 Condition: Good - Referral to Home Health Primary Care Physician: Brett Connors MD - Patient Summary/Data Operative Procedure(s) Performed: right reverse total shoulder arthroplasty Consults: Consultations 01/31/20 16:52 Consult to Physician [CONS] Stat 01/31/20 17:28 Consult to Respiratory Therapy [Respiratory Care Assess and Treatment] [CONS] Routine - Patient Instructions Diet: Usual Diet as Tolerated Activity: Apply Ice, As Tolerated, Elevate Extremity Activity, Other: No forceful use of the surgical limb. Driving: Do Not Drive Showering/Bathing: May Shower Wound/Incision Care: Keep Operative Site/Wound Site Clean and Dry, Do NOT Change Dressing Notify Provider of: Fever, Increased Pain, Swelling and Redness, Drainage, Nausea and/or Vomiting Other/Special Instructions: Please get up and moving around EVERY HOUR while awake. This helps to prevent blood clots. Please take a short walk in your home every hour while awake. Have help with mobility as needed. Starting on 02-01-2020, please take 325mg aspirin daily. The aspirin is being used for blood clot prevention and not for pain management so please do not miss a dose of the medication. You could use a medication like Pepcid or Tagamet and a medication like Prilosec or Nexium to protect your stomach while you are using the aspirin. You will HOLD use of 81mg aspirin daily while using the 325mg aspirin daily. When the course of 325mg aspirin daily is completed in 40 days, you will resume use of 81mg aspirin daily. At home, please complete the exercises that you learned after surgery. Schedule for physical or occupational therapy. Use the pain medication as needed. The medication may cause drowsiness and constipation. Contact your primary care provider for instructions if you are constipated. You may use a stool softener like docusate sodium or Colace 100mg twice daily and/or a laxative like Miralax daily for constipation. Increase your water and fiber intake while you are using the pain medication. Please discontinue use of the prescription pain medication as soon as able. The goal is to use the least amount of prescription pain medication as possible and to discontinue use of the prescription pain medication as soon as possible. Please do not use other medications that may cause drowsiness (other pain medications, anxiety pills, cold medications, sleeping pills, etc) while using the prescription pain medication. Do not use alcohol while using the pain medication. You may use acetaminophen or Tylenol for pain management, however, please ensure you are not using over 4000 mg or 4 grams of acetaminophen per day from all sources. At this time, please do not use ibuprofen (Motrin, Advil) or naproxen (Aleve) for pain management as you are using the aspirin. When the aspirin course is completed in 4 to 6 weeks, you could use ibuprofen or naproxen for pain management (if this is allowed by your primary care provider). If able, please wear the CHANO hose during the day and you may remove them at night. You may remove the CHANO hose if you have difficulty tolerating them. Elevate the limb to decrease swelling. Place ice to the area often. Place a towel between your skin and the blue pad. Please keep the dressing in place until follow-up. Notify the Clinic if the dressing becomes saturated. Increase your protein intake while you are healing. If you have diabetes or have been instructed by your primary care provider to check your blood sugars, please closely monitor your blood sugars and notify your primary care provider with abnormal values. Elevated blood sugars increases the risk of infection. It is normal to have swelling and bruising at the surgical site, as well as above and below the surgical site. You may resume use of OTC and herbal medications in 2 weeks. Call the Clinic with questions or concerns - [phone] and leave a message for the nurse. - Discharge Plan *PRESCRIPTION DRUG MONITORING PROGRAM REVIEWED*: No *COPY OF PRESCRIPTION DRUG MONITORING REPORT IN PATIENT SRINI: No Prescriptions/Med Rec: Aspirin 325 mg PO DAILY #40 tab Cyclobenzaprine [Flexeril] 5 mg PO BID PRN #20 tab PRN Reason: Muscle Spasm oxyCODONE 5 - 10 mg PO Q4H PRN #60 tab PRN Reason: Pain Home Medications: Home Meds Cholecalciferol (Vitamin D3) [Vitamin D3] 1,000 units PO DAILY 08/01/15 [History] lisinopriL [Prinivil] 40 mg PO DAILY 08/01/15 [History] Loperamide HCl [Imodium A-D] 1 mg PO ASDIRECTED 01/28/20 [History] Vardenafil HCl [Levitra] 10 mg PO DAILY 01/28/20 [History] atorvaSTATin [Lipitor] 10 mg PO DAILY 01/28/20 [History] Aspirin 325 mg PO DAILY #40 tab 01/31/20 [Rx] Cyclobenzaprine [Flexeril] 5 mg PO BID PRN #20 tab 01/31/20 [Rx] oxyCODONE 5 - 10 mg PO Q4H PRN #60 tab 01/31/20 [Rx] Patient Handouts: Cyclobenzaprine tablets, Reverse Total Shoulder Replacement, Care After, Oxycodone tablets or capsules, Aspirin, ASA oral tablets, How to Use a Shoulder Immobilizer Referrals: Hope Mar PA-C [Physician [employer]] - (Please follow up with Hope Mar at [facility] on the following dates: FridayFebruary 07 - 10:15am FridayFebruary 14 - 10:15am FridayMarch 14 - 10:15am ) - Discharge Summary/Plan Comment DC Time >30 min.: No - Patient Data Vitals - Most Recent: Last Vital Signs Temp 97.2 F 02/01/20 04:05 Pulse 50 L 02/01/20 04:05 Resp 16 02/01/20 04:05 BP 116/54 L 02/01/20 04:05 Pulse Ox 92 L 02/01/20 04:05 Weight - Most Recent: 195 lb 1.745 oz I&O - Last 24 hours: Intake & Output 10/05/20 10/06/20 10/06/20 22:59 06:59 14:59 Intake Total 1550 Output Total 100 300 Balance 1450 -300 Lab Results - Last 24 hrs: Laboratory Results - last 24 hr 02/01/20 02/01/20 Range/Units 06:03 06:03 WBC 8.33 (4.23-9.07) K/mm3 RBC 3.77 L (4.63-6.08) M/mm3 Hgb 12.8 L (13.7-17.5) gm/dl Hct 39.8 L (40.1-51.0) % MCV 105.6 H (79.0-92.2) fl MCH 34.0 H (25.7-32.2) pg MCHC 32.2 (32.2-35.5) g/dl RDW Std Deviation 48.3 H (35.1-43.9) fL Plt Count 112 L (163-337) K/mm3 MPV 10.5 (9.4-12.3) fl Sodium 137 (136-145) mEq/L Potassium 4.2 (3.5-5.1) mEq/L Chloride 101 (98-107) mEq/L Carbon Dioxide 29 (21-32) mEq/L Anion Gap 11.2 (5-15) BUN 18 (7-18) mg/dL Creatinine 1.0 (0.7-1.3) mg/dL Est Cr Clr Drug Dosing 72.21 mL/min Estimated GFR (MDRD) > 60 (>60) mL/min BUN/Creatinine Ratio 18.0 (14-18) Glucose 132 H (83-115) mg/dL Calcium 8.7 (8.5-10.1) mg/dL Total Bilirubin 0.8 (0.2-1.0) mg/dL AST 24 (15-37) U/L ALT 28 (16-63) U/L Alkaline Phosphatase 55 (46-116) U/L Total Protein 6.5 (6.4-8.2) g/dl Albumin 3.2 L (3.4-5.0) g/dl Globulin 3.3 gm/dL Albumin/Globulin Ratio 1.0 (1-2) Med Orders - Current: Current Medications Albuterol/Ipratropium (Duoneb 3.0-0.5 Mg/3 Ml) 3 ml NEB Q4HRRT PRN PRN Reason: Shortness of Breath Bisacodyl (Dulcolax) 5 mg PO DAILY PRN PRN Reason: Constipation Cyclobenzaprine HCl (Flexeril) 5 mg PO BID [facility] Last Admin: 01/31/20 21:37 Dose: 5 mg Documented by: Cyclobenzaprine HCl (Flexeril) 5 mg PO BID PRN PRN Reason: Spasms Docusate Sodium (Colace) 100 mg PO BID [facility] Last Admin: 01/31/20 21:37 Dose: 100 mg Documented by: Famotidine (Pepcid) 20 mg PO BID [facility] Last Admin: 01/31/20 21:42 Dose: 20 mg Documented by: Magnesium Hydroxide (Milk Of Magnesia) 30 ml PO BID PRN PRN Reason: Constipation Morphine Sulfate (Morphine) 2 mg IVPUSH Q2H PRN PRN Reason: Breakthrough Pain Naloxone HCl (Narcan) 0.1 mg IVPUSH Q5M PRN PRN Reason: Oversedation Ondansetron HCl (Zofran) 4 mg IVPUSH Q6H PRN PRN Reason: Nausea/Vomiting Oxycodone HCl (Oxycodone) 5 - 10 mg PO Q4H PRN PRN Reason: Pain Last Admin: 01/31/20 11:47 Dose: 10 mg Documented by: Oxycodone HCl (Oxycodone) 5 - 10 mg PO Q4H PRN PRN Reason: Pain Last Admin: 02/01/20 04:01 Dose: 10 mg Documented by: Senna (Senna) 8.6 mg PO BID PRN PRN Reason: Constipation Discontinued Medications Dexamethasone (Dexamethasone) Confirm Administered Dose 20 mg .ROUTE .STK-MED ONE Stop: 01/31/20 08:14 Epinephrine HCl (Adrenalin) Confirm Administered Dose 1 mg .ROUTE .STK-MED ONE Stop: 01/31/20 06:59 Fentanyl (Sublimaze) Confirm Administered Dose 250 mcg .ROUTE .STK-MED ONE Stop: 01/31/20 06:16 Fentanyl (Sublimaze) 50 mcg IVPUSH Q5M PRN PRN Reason: Pain Stop: 01/31/20 18:00 Glycopyrrolate (Robinul) Confirm Administered Dose 0.4 mg .ROUTE .STK-MED ONE Stop: 01/31/20 08:53 Hydromorphone HCl (Dilaudid) 0.5 mg IVPUSH Q10M PRN PRN Reason: Pain (severe 7-10) Stop: 01/31/20 18:00 Lactated Ringer's (Ringers, Lactated) 1,000 mls @ 125 mls/hr IV ASDIRECTED [facility] Stop: 01/31/20 23:00 Last Admin: 01/31/20 10:18 Dose: 125 mls/hr Documented by: Lidocaine HCl (Xylocaine-Mpf 1%) Confirm Administered Dose 4 mls @ as directed .ROUTE .STK-MED ONE Stop: 01/31/20 06:15 Lidocaine HCl (Xylocaine-Mpf 1%) Confirm Administered Dose 4 mls @ as directed .ROUTE .STK-MED ONE Stop: 01/31/20 06:17 Lactated Ringer's (Ringers, Lactated) Confirm Administered Dose 1,000 mls @ as directed .ROUTE .STK-MED ONE Stop: 01/31/20 08:31 Lactated Ringer's (Ringers, Lactated) Confirm Administered Dose 1,000 mls @ as directed .ROUTE .STK-MED ONE Stop: 01/31/20 10:03 Cefazolin Sodium/Dextrose 2 gm (/ Premix) 50 mls @ 100 mls/hr IV Q8H [facility] Stop: 02/01/20 07:59 Last Admin: 02/01/20 07:34 Dose: 100 mls/hr Documented by: Ketorolac Tromethamine (Toradol) 15 mg IVPUSH ONETIME [facility] Stop: 01/31/20 13:00 Last Admin: 01/31/20 10:34 Dose: 15 mg Documented by: Lidocaine/Sodium Bicarbonate (Buffered Lidocaine 1% In Ns 8.4%) 0.25 ml IDERM ONETIME PRN PRN Reason: Prior to IV Start Stop: 01/31/20 23:00 Last Admin: 01/31/20 06:45 Dose: 0.25 ml Documented by: Midazolam HCl (Versed 1 Mg/Ml) Confirm Administered Dose 2 mg .ROUTE .STK-MED ONE Stop: 01/31/20 06:16 Miscellaneous Medication (Phenylephrine 1 Mg/10 Ml-Ns) Confirm Administered Dose 1 mg .ROUTE .STK-MED ONE Stop: 01/31/20 08:42 Miscellaneous Medication (Phenylephrine 1 Mg/10 Ml-Ns) Confirm Administered Dose 1 mg .ROUTE .STK-MED ONE Stop: 01/31/20 09:17 Neostigmine Methylsulfate (Neostigmine Methylsulfate) Confirm Administered Dose 5 mg .ROUTE .STK-MED ONE Stop: 01/31/20 09:22 Ondansetron HCl (Zofran) Confirm Administered Dose 4 mg .ROUTE .STK-MED ONE Stop: 01/31/20 06:15 Ondansetron HCl (Zofran) 4 mg IVPUSH ONETIME PRN PRN Reason: Nausea/Vomiting Stop: 01/31/20 18:00 Propofol (Diprivan 20 Ml) Confirm Administered Dose 200 mg .ROUTE .STK-MED ONE Stop: 01/31/20 06:16 Rocuronium [place] (Zemuron) Confirm Administered Dose 50 mg .ROUTE .STK-MED ONE Stop: 01/31/20 06:15 Ropivacaine (Naropin 0.5%) Confirm Administered Dose 30 ml .ROUTE .STK-MED ONE Stop: 01/31/20 06:59 Sodium Chloride (Saline Flush) 10 ml FLUSH ASDIRECTED PRN PRN Reason: Keep Vein Open Stop: 01/31/20 23:00 Tranexamic Acid (Cyklokapron) Confirm Administered Dose 1,000 mg .ROUTE .STK-MED ONE Stop: 01/31/20 07:38 Last Admin: 01/31/20 09:24 Dose: 1,000 mg Documented by: Vancomycin HCl (Vancomycin) Confirm Administered Dose 1 gm .ROUTE .STK-MED ONE Stop: 01/31/20 07:38 Last Admin: 01/31/20 09:24 Dose: 1 gm Documented by:
[2020-02-01] MEDS: Docusate Sodium 100 MG Cap PO SCH (09:03)
[2020-02-01] MEDS: Famotidine 10 MG Tab PO SCH (09:03)
[2020-02-01] MEDS: Cyclobenzaprine 10 MG Tab PO SCH (09:04)
[2020-02-01 09:39] VITALS: BP 136/92; PULSE 77
--- NOTE | 2020-02-01 09:57 | PCM48HPAN ---
Post Anesthesia Note - EVALUATION WITHIN 48HRS OF ANESTHETIC Vital Signs in Normal Range: Yes Patient Participated in Evaluation: Yes Respiratory Function Stable: Yes Airway Patent: Yes Cardiovascular Function Stable: Yes Hydration Status Stable: Yes Pain Control Satisfactory: Yes Nausea and Vomiting Control Satisfactory: Yes Mental Status Recovered: Yes Vital Signs: Last Vital Signs Temp 98.1 F 02/01/20 09:15 Pulse 77 02/01/20 09:15 Resp 16 02/01/20 09:15 BP 136/92 H 02/01/20 09:15 Pulse Ox 94 L 02/01/20 09:15 - COMMENTS/OBSERVATIONS Free Text/Narrative:: sitting up in chair. Just finished breakfast. Ready for pain pills. No nausea. Feels good.
[2020-02-01] MEDS ORDERED: Famotidine 20 MG Tab PO SCH ×2 (21:00)
--- NOTE | 2020-02-09 10:26 | OR ---
DATE OF OPERATION: 01/31/2020 SURGEON: Nathan Jerry MD OPERATION PERFORMED: Right reverse total shoulder arthroplasty. PREOPERATIVE DIAGNOSIS: Right shoulder rotator cuff tear arthropathy. POSTOPERATIVE DIAGNOSIS: Right shoulder rotator cuff tear arthropathy. ANESTHESIA: General endotracheal intubation with regional interscalene block. ANESTHESIA PROVIDER: Eduardo Gao CRNA ASSISTANTS: Hope Mar PA-C; and Madonna Stone LPN. ESTIMATED BLOOD LOSS: 550 mL. COMPLICATIONS: None. CONDITION: Stable. IMPLANTS: 1. Ridgeview size 17 humeral stem 135 degrees. 2. Ceferino size 36 +2 glenosphere. 3. Ridgeview size 4 mm poly. DESCRIPTION OF PROCEDURE: The patient was identified in the preoperative holding area. Proper site was marked and identified by the surgeon. The patient was taken back to the operative theater, where after adequate anesthesia, the patient's right upper extremity was sterilely prepped and draped in the usual sterile fashion. OR time-out was performed. The patient received 2 g of IV Ancef. At this time, standard deltopectoral incision was made. This was taken down to cephalic vein. Cephalic vein was retracted laterally. Clavipectoral fascia was incised and the conjoined tendon was retracted medially. The deltoid and cephalic vein were retracted laterally. Biceps tendon was identified and a supra-pectoralis tenodesis was performed. The biceps tendon was cut and was resected all the way back to the level of the glenoid. The subscapularis tendon was then peeled down and the humeral head was dislocated. The humeral head cut was then completed and found to be adequate. Attention was turned to the glenoid. The patient was noted to have a lot of scar tissue from his previous open end arthroscopic procedures. At this time, I performed a partial capsulectomy as well as removal of the labrum circumferentially. Guide pin was then placed in a center-center position with slight inferior tilt. The concentric 28 mm reamer was then utilized and the central guide pin was removed. The 28 mm glenosphere was then compressed against the glenoid using the central compression screw, and an anterior and superior as well as the posterior locking screw were then applied and found to have adequate purchase. The 36 +2 glenosphere was then impacted into place and attention was turned to the humerus. Starting with a 10 broach, I was able to broach up to a 17, which was found to be rotationally and vertically stable. Trial implants were then placed and +4 poly had good presybeterian of motion. There was no instability noted. At this time, trial implants were removed and the 17 mm stem with +4 poly were constructed on the back table and then impacted into the humerus and was reduced. C-arm fluoroscopy was then again utilized making sure all components were aligned which they were and it was stable throughout range of motion. IrriSept was irrigated through the shoulder along with 1 L pulse lavage irrigation. Topical tranexamic acid and vancomycin powder were applied. 2-0 Vicryl was used subcutaneously, and Prineo was used for the skin. The patient was placed in a sterile soft dressing and a pillow sling and sent to the PACU in stable condition. PILY /[id number]
== END 2020-02-01 11:25 | disposition home or self-care (01) ==
LOC: JD.SDS 06:26 → EDSTATUS 09:45 → JD.OB 15:05 → JD.ICU 17:51 → JD.OB 17:53 → JD.MS 02-01 07:00 → JD.OB 02-01 07:03
PROVIDERS: ADMIT Orthopaedic Surgery; ATTEND Orthopaedic Surgery
DX: M19.011 Primary osteoarthritis, right shoulder (principal); M75.101 Unspecified rotator cuff tear or rupture of right shoulder, not specified as traumatic; I10 Essential (primary) hypertension; M17.11 Unilateral primary osteoarthritis, right knee; E78.00 Pure hypercholesterolemia, unspecified; I25.2 Old myocardial infarction; G89.18 Other acute postprocedural pain; Z79.82 Long term (current) use of aspirin; Z79.899 Other long term (current) drug therapy; Z87.891 Personal history of nicotine dependence; Z98.890 Other specified postprocedural states; Z01.812 Encounter for preprocedural laboratory examination; Z20.828 Contact with and (suspected) exposure to other viral communicable diseases
CPT/HCPCS: 23474; 36415; 73020; 76000; 80053; 85027; 93005; 97110; 97161; A9270; C1713; C1776; G0378; J0171; J0690; J1100; J1885; J2001; J2250; J2370; J2405; J2704; J2710; J2795; J3010; J3370; J7120; U0002; 01638; 64415